=== PATIENT | male | born 1955 | race Two or more races ===

== ENCOUNTER → 2024-02-11 | Outpatient (CLI) | payer OTHER, SELFPAY ==
[2024-02-11 08:37] LABS: Basophils # (Auto) 0.1 Thou/mm3 (0.0-0.2); Basophils % (Auto) 1 % (0-2.5); Eosinophils # (Auto) 0.3 Thou/mm3 (0.0-0.5); Eosinophils % (Auto) 3 % (0-10); Hematocrit 40.4 % (41.0-53.0); Hemoglobin 13.4 g/dL (13.5-16.0); Immature Granulocytes % (Auto) 3 % (0-0); Immature Granulocytes Auto 0.37 Thou/mm3 (0.00-0.00); Lymphocytes # (Auto) 3.3 Thou/mm3 (1.0-4.8); Lymphocytes % (Auto) 29 % (10-50); Mean Corpuscular HGB Conc 33.2 g/dl (31.0-37.0); Mean Corpuscular Hemoglobin 31.4 pg (25.0-35.0); Mean Corpuscular Volume 95 fL (80-100); Monocytes # (Auto) 0.9 Thou/mm3 (0.0-0.8); Monocytes % (Auto) 8 % (0-12); Neutrophils # (Auto) 6.3 Thou/mm3 (1.8-7.7); Neutrophils % (Auto) 56 % (37-80); Nucleated Red Blood Cell % 0 /100 WBC (0); Platelet Count 250 Thou/mm3 (140-440); RDW Standard Deviation 59.3 fL (35.1-43.9); Red Blood Count 4.27 Miln/mm3 (4.50-5.90); White Blood Count 11.2 Thou/mm3 (3.8-10.6)
[2024-02-11 08:44] LABS: Glucose Estimated Average 117 mg/dL (80-131); Hemoglobin A1C 5.7 % Hgb (4.8-6.0)
[2024-02-11 09:01] LABS: Prostate Specific Antigen 1.85 ng/mL (0-4.00)
[2024-02-11 09:08] LABS: Alanine Aminotransferase 102 U/L (10-49); Albumin, Serum 4.4 gm/dL (3.4-4.8); Albumin/Globulin Ratio 2.6 (1.2-2.2); Alkaline Phosphatase 83 U/L (46-116); Anion Gap 6 (7-16); Aspartate Amino Transferase 37 U/L (0-34); BUN/Creatinine Ratio 23 Ratio (12-20); Bilirubin,Total 0.7 mg/dL (0.3-1.2); Blood Urea Nitrogen 28 mg/dL (9-23); Calcium 9.4 mg/dL (8.3-10.6); Calcium (Corrected) 9.4 mg/dL (8.5-10.1); Carbon Dioxide 27.3 mMol/L (20.0-31.0); Cardiac Risk Estimate 3.3 RATIO (4.0-6.7); Chloride 107 mMol/L (98-107); Cholesterol 216 mg/dL (132-200); Creatinine (Component) 1.2 mg/dL (0.6-1.3); Free T4 (Free Thyroxine) 1.24 ng/dL (0.89-1.76); Globulin 1.7 gm/dL (2.3-3.5); Glucose 81 mg/dL (74-106); HDL Cholesterol 66 mg/dL (40-60); LDL Cholesterol,Calculated 124 mg/dL (0-130); Osmolality,Calculated 283 (275-295); Potassium 4.1 mMol/L (3.4-5.1); Sodium 140 mMol/L (136-145); Thyroid Stimulating Hormone 3.62 uIU/mL (0.55-4.78); Total Protein 6.1 gm/dL (5.7-8.2); Triglycerides 129 mg/dL (30-150); eGFR > 60 See Note
== END | disposition home or self-care (01) ==
PROVIDERS: PCP Family Medicine; Referring Provider Nurse Practitioner Family; Visit Provider Nurse Practitioner Family
DX: I10 Essential (primary) hypertension (principal); E78.5 Hyperlipidemia, unspecified; N40.0 Benign prostatic hyperplasia without lower urinary tract symptoms; Z13.1 Encounter for screening for diabetes mellitus; Z13.29 Encounter for screening for other suspected endocrine disorder
CPT/HCPCS: 36415; 80053; 80061; 83036; 84153; 84439; 84443; 85025

== ENCOUNTER 2024-02-17 10:13 | Inpatient (IN) | payer OTHER, MEDICARE, SELFPAY ==
[2024-02-17] VITALS (9 sets, daily range): BP systolic 76–153; BP diastolic 42–89; PULSE 56–98; RESP 18–19; TEMP 36.1–36.9; O2SAT 94–98; BMI 28.6; BMI 31.0; BMI 31.5
--- NOTE | 2024-02-17 10:49 | EKG_ITS ---
[facility] Test Date: 2024-02-17 Pat Name: ROWENA ALONSO Department: Room: - Gender: Male Database Administration Associate: : 1955 Requested By: Lucero Michael ([facility]) [place] Order Number: [id number] Reading MD: Lucero Michael ([facility]) [place]to Measurements Intervals [place] Rate: 70 P: 9 [place]: 176 QRS: 69 QRSD: 109 T: 17 QT: 372 QTc: 402 Interpretive Statements SINUS RHYTHM POSSIBLE INFERIOR MYOCARDIAL INFARCTION , PROBABLY OLD [30 ms Q WAVE IN II/aVF] No previous ECG available for comparison /store/S0/[id number].pdf
--- NOTE | 2024-02-17 10:49 | XR_ITS ---
Examination: CT brain head without contrast. 2-D sagittal coronal reconstructions Date and time of exam:February 17, 2024 1320 hours Comparison November 30, 2021 INDICATIONS: Onset dizziness today CTDI: vol (mGy):54.9 DLP: (mGycm):1181 Technique: Multiple CT axial sections of the brain have been obtained, 5 mm slice thickness. Contrast has not been administered. 2-D sagittal, coronal reconstructions have been obtained Low dose protocols were performed. One or more of the following dose reduction techniques were used; automated exposure control, adjustment of the mA and/or KV according to patient size, use of iterative reconstruction technique. Findings: No significant ventricular enlargement. Intra-axial or extra-axial hemorrhage density is not seen. No mass effect or midline shift Basal cisterns are not remarkable. Fourth ventricle is midline. Cranial vault intact. Impression: Negative for acute hemorrhage, mass effect or midline shift Advise clinical correlation and follow-up accordingly
--- NOTE | 2024-02-17 10:50 | PD.EDRME ---
Rapid Medical Screening Exam RME Arrival date/time: 02/17/24 10:13 This is a 68-year-old male who presented to the emergency department with complaints of acute dizziness for 3 days. Upon assessment he is hypertensive. I have greeted and performed a focused initial assessment of this patient. Initial appropriate labs ordered at this time. A comprehensive ED assessment and evaluation of the patient and analysis of all test and completion of medical decision making process will be conducted by additional ED provider. Chief Complaint: Dizziness Time Seen by Provider: 02/17/24 10:36 Vital signs: Vital Signs Temperature 98.5 F 02/17/24 10:33 Pulse Rate 98 02/17/24 10:33 Respiratory Rate 19 02/17/24 10:33 Blood Pressure 76/42 L 02/17/24 10:33 Pulse Oximetry (%) 98 02/17/24 10:33 Oxygen Delivery Method Room Air 02/17/24 10:33 MD Attestation MD Attestation Patient was seen by the nurse practitioner not myself but I had to cosign it
--- NOTE | 2024-02-17 11:17 | PD.EDDIZZY ---
ED Dizzyness RME/HPI General Chief Complaint: Dizziness Stated Complaint: DIZZINESS X3DAYS Time Seen by Provider: 02/17/24 10:36 Arrival date/time: 02/17/24 10:13 RME / HPI RME / HPI Narrative: 68-year-old male with significant history of hypertension, hypercholesterolemia, was brought in by family for evaluation regarding dizziness. Patient's been having dizziness for the last 3 days, worse yesterday and today, patient called in for work yesterday. Patient was noted to be very hypertensive in the emergency room, blood pressure of 78/54. Upon evaluation patient denies any headache denies any abdominal pain denies any vomiting denies any fever denies any diarrhea. Patient also denies any blood in the stool or changes in the color of the stool. Patient nonalcoholic drinker. Related Data Home Medications ?Medication ?Instructions ?Recorded ?Confirmed gabapentin 300 mg capsule 30 mg PO TID 02/11/22 05/20/23 atorvastatin 20 mg tablet 20 mg PO QDAY 05/20/23 05/20/23 dicyclomine 20 mg tablet 20 mg PO TID 05/20/23 05/20/23 hydrochlorothiazide 12.5 mg tablet 12.5 mg PO QDAY 05/20/23 05/20/23 lisinopril 40 mg tablet 40 mg PO QDAY 05/20/23 05/20/23 tamsulosin 0.4 mg capsule 0.4 mg PO QHS 05/20/23 05/20/23 Previous Rx's ?Medication ?Instructions ?Recorded pantoprazole 40 mg tablet,delayed 40 mg PO BID #60 tabs 02/11/22 release (Protonix) Allergies Allergy/AdvReac Type Severity Reaction Status Date / Time tramadol Allergy Intermediate Rash Verified 02/17/24 10:16 Review of Systems Review of Systems Narrative Review of Systems: Review of system reviewed and within normal limits except mentioned in HPI ED Exam Narrative Physical exam: VITAL SIGNS: Reviewed. GENERAL APPEARANCE: Alert and interactive, follows commands, no acute distress, HEAD AND FACE: Non-traumatic. ENT: PERRL, pale conjunctiva, eyelid no trauma, Mucous membrane moist. NECK: Supple, nontender, no nuchal rigidity. CHEST: No tenderness, no crepitus, no paradoxical movement, no retractions. LUNGS: Clear, well ventilated, symmetric, no rales, no wheezing, no ronchi, no stridor, good breath sounds bilaterally. HEART: Regular rate, regular rhythm, no murmur, no gallops. ABDOMEN: Soft, positive bowel sounds, nondistended, no guarding, nontender, no rebound, no masses, RECTAL: Deferred. GENITAL: Deferred. NEUROLOGICAL: Gross motor function intact sensory function intact, Appropriate for age. MUSCULOSKELETAL: low back nontender, full range of motion. EXTREMITIES: Nontender, full range of motion. SKIN: Color pink, dry, no rash, no lacerations, no abrasions, no contusions. LYMPHATICS: Deferred. Course Quality Measures none Orders Category Date Time Status COVID-19 Screening Questionnaire NOW Care 02/17/24 14:[address] Screening NOW Care 02/17/24 11:20 Active Decision to Admit X1 Care 02/17/24 14:40 Completed EKG (ED ONLY) *Do not use* NOW Care 02/17/24 10:49 Completed Insert IV NOW Care 02/17/24 10:49 Active NPO STAT Care 02/17/24 10:49 Active Occult Blood,Stool (Nursing) NOW Care 02/17/24 10:[address] chest abdomen pelvis wo Stat Exams 02/17/24 13:[address] head/brain wo con Stat Exams 02/17/24 10:49 Completed EKG (ED Only) Stat Exams 02/17/24 10:49 Draft Blood Culture (Lab) Stat Lab 02/17/24 12:12 Received CBC Stat Lab 02/17/24 12:12 Completed Comprehensive Metabolic Panel Stat Lab 02/17/24 12:12 Completed Lactic Acid [Lactate (Lactic Acid)] Stat Lab 02/17/24 12:12 Completed Lipase Stat Lab 02/17/24 12:12 Completed Magnesium Stat Lab 02/17/24 12:12 Completed Procalcitonin Stat Lab 02/17/24 12:12 Completed Prothrombin Time with INR Stat Lab 02/17/24 12:12 Completed Troponin I Stat Lab 02/17/24 12:12 Completed Type and Screen Stat Lab 02/17/24 12:12 Completed Urinalysis Stat Lab 02/17/24 21:30 Received Sodium Chloride 0.9% 1000 ml [Ns] 1,000 ml Med 02/17/24 14:06 Discontinued IV 999 mls/hr Sodium Chloride 0.9% 1000 ml [Ns] 1,000 ml Med 02/17/24 14:24 Discontinued IV 999 mls/hr Vital Signs Vital signs: Vital Signs Temperature 98.5 F 02/17/24 10:33 Pulse Rate 98 02/17/24 10:33 Respiratory Rate 19 02/17/24 10:33 Blood Pressure 76/42 L 02/17/24 10:33 Pulse Oximetry (%) 98 02/17/24 10:33 Oxygen Delivery Method Room Air 02/17/24 10:33 Dizziness MDM Narrative MDM Narrative:: 68-year-old male with significant history of hypertension, hypercholesterolemia, was brought in by family for evaluation regarding dizziness. Patient's been having dizziness for the last 3 days, worse yesterday and today, patient called in for work yesterday. Patient was noted to be very hypertensive in the emergency room, blood pressure of 78/54. Upon evaluation patient denies any headache denies any abdominal pain denies any vomiting denies any fever denies any diarrhea. Patient also denies any blood in the stool or changes in the color of the stool. Patient nonalcoholic drinker. Patient was started on IV fluids right away Patient workup is significant for CELY, creatinine was noted to be 2.1, BUN of 36. The rest of the labs unremarkable. CT scan of the chest abdomen pelvis showed pulmonary nodule, otherwise unremarkable. Results discussed with the patient and family. CT scan of the head came back unremarkable. Plan of care discussed with the patient, regarding admission due to hypotension and CELY. Patient and family agrees to be admitted. Patient data External records reviewed:: None Clinical information provided by:: patient and family Social determinants that could affect healthcare access:: none Patient has the following chronic illnesses:: Hypertension hypercholesterolemia How is presenting disease/condition affected by chronic disease/condition?: exacerbated by Evaluation data The following diagnostics were reviewed and interpreted by me:: lab results, radiology exam(s) and EKG tracing(s) Lab and/or radiology exams considered but not ordered:: None Interpretation Summary: EKG's interpreted by me shows sinus rhythm, ventricular rate of 70 bpm, no ST segment elevation or depression noted. Medications / Prescriptions Medications or Prescriptions considered but not ordered:: None Medication administrations:: Medication Administration History Acetaminophen (Acetaminophen 325 Mg Tablet) 650 mg PO Q6H PRN PRN Reason: Fever >100.4 Stop: 03/18/24 15:11 Acetaminophen (Acetaminophen 325 Mg Tablet) 650 mg PO Q6H PRN PRN Reason: PAIN SCALE 1-3 (mild Stop: 03/18/24 15:11 Hydrocodone Bitart/Acetaminophen (Hydrocodone/Apap 10/325 Tab) 1 tab PO Q4HR PRN PRN Reason: PAIN SCALE 7-10 (Severe Stop: 02/22/24 15:11 Heparin Sodium (Porcine) (Heparin Sod Inj 5000 Unit/Ml Vial) 5,000 unit SC Q8HR [facility] Stop: 03/02/24 21:59 Sodium Chloride (Ns) 1,000 mls @ 75 mls/hr IV .[id number] [facility] Stop: 03/18/24 15:14 Last Infusion: 02/17/24 19:57 Dose: Infused Documented By: Admin: 02/17/24 15:50 Dose: 75 mls/hr Documented By: RANDY Ondansetron HCl (Ondansetron Inj 2 Mg/Ml Inj 2 Ml) 4 mg IV Q6H PRN; Protocol PRN Reason: NAUSEA OR VOMITING Stop: 03/18/24 15:11 Oxycodone/Acetaminophen (Oxycodone/Apap 5/325 Tablet) 1 tab PO Q6H PRN PRN Reason: PAIN SCALE 4-6 (Moderate Stop: 02/22/24 15:11 Sennosides (Senna Tablet) 1 tab PO BID PRN; Protocol PRN Reason: CONSTIPATION Stop: 03/18/24 15:11 Discontinued Medications Sodium Chloride (Ns) 1,000 mls @ 999 mls/hr IV .Q1H1M ONE Stop: 02/17/24 15:06 Last Infusion: 02/17/24 15:36 Dose: Infused Documented By: Admin: 02/17/24 14:29 Dose: 999 mls/hr Documented By: RANDY Sodium Chloride (Ns) 1,000 mls @ 999 mls/hr IV .Q1H1M ONE Stop: 02/17/24 15:24 Last Infusion: 02/17/24 15:36 Dose: Infused Documented By: Admin: 02/17/24 14:29 Dose: 999 mls/hr Documented By: RANDY IV fluids for hydration Consultations Consultation(s) initiated? (list below): No Consultation #1 (Physician, Specialty, Details): None Diagnosis Dizziness Differential Diagnosis: other (Hyportension, dehydration,) Most likely diagnosis given after review of the tests above:: CELY, hypotension dehydration Admission Indicated Admission indicated?: indicated Explain why admission is indicated or not indicated:: Patient is to be admitted for further management Admission Request Was there a request for admission?: Yes Admission Attestation Admission request attestation: Discussed case with [Dr Fox ] from Hospitalist service regarding admission. Discussed patients ED course, exam findings, labs, and radiology results. The Hospitalist [agrees, to accept the patient for admission. Disposition Plan Disposition Plan: Admit Discharge Plan Plan Patient Disposition: Admit Acute Care w/in Hospital Disposition Comment: Stable Problem List Clinical Impression: CELY (acute kidney injury), Acute hypotension
[2024-02-17 12:18] LABS: Lactate (Lactic Acid) 1.5 mMol/L (0.4-2.0)
[2024-02-17 12:19] LABS: Basophils # (Auto) 0.1 Thou/mm3 (0.0-0.2); Basophils % (Auto) 1 % (0-2.5); Eosinophils # (Auto) 0.2 Thou/mm3 (0.0-0.5); Eosinophils % (Auto) 2 % (0-10); Hematocrit 37.4 % (41.0-53.0); Hemoglobin 12.6 g/dL (13.5-16.0); Immature Granulocytes % (Auto) 2 % (0-0); Immature Granulocytes Auto 0.18 Thou/mm3 (0.00-0.00); Lymphocytes # (Auto) 2.7 Thou/mm3 (1.0-4.8); Lymphocytes % (Auto) 27 % (10-50); Mean Corpuscular HGB Conc 33.7 g/dl (31.0-37.0); Mean Corpuscular Hemoglobin 31.7 pg (25.0-35.0); Mean Corpuscular Volume 94 fL (80-100); Monocytes % (Auto) 10 % (0-12); Neutrophils # (Auto) 5.8 Thou/mm3 (1.8-7.7); Neutrophils % (Auto) 59 % (37-80); Nucleated Red Blood Cell % 0 /100 WBC (0); Platelet Count 219 Thou/mm3 (140-440); RDW Standard Deviation 59.9 fL (35.1-43.9); Red Blood Count 3.97 Miln/mm3 (4.50-5.90); White Blood Count 9.9 Thou/mm3 (3.8-10.6)
[2024-02-17 12:35] LABS: INR 1.1 (0.9-1.3); Prothrombin Time 11.5 Seconds (9.0-12.2)
[2024-02-17 13:15] LABS: Alanine Aminotransferase 118 U/L (10-49); Albumin, Serum 3.7 gm/dL (3.4-4.8); Albumin/Globulin Ratio 1.7 (1.2-2.2); Alkaline Phosphatase 67 U/L (46-116); Anion Gap 10 (7-16); Aspartate Amino Transferase 40 U/L (0-34); BUN/Creatinine Ratio 17 Ratio (12-20); Bilirubin,Total 1.1 mg/dL (0.3-1.2); Blood Urea Nitrogen 36 mg/dL (9-23); Calcium 9.2 mg/dL (8.3-10.6); Calcium (Corrected) 9.4 mg/dL (8.5-10.1); Carbon Dioxide 22.9 mMol/L (20.0-31.0); Chloride 107 mMol/L (98-107); Creatinine (Component) 2.1 mg/dL (0.6-1.3); Estimated Creatinine Clearance 43.3 mL/min (>60); Globulin 2.2 gm/dL (2.3-3.5); Glucose 99 mg/dL (74-106); Lipase 33 U/L (12-53); Osmolality,Calculated 287 (275-295); Potassium 3.7 mMol/L (3.4-5.1); Sodium 140 mMol/L (136-145); Total Protein 5.9 gm/dL (5.7-8.2); Troponin I < 0.020 ng/mL (0.0-0.045); eGFR 34 See Note
--- NOTE | 2024-02-17 13:21 | XR_ITS ---
Examination: CT chest, without intravenous contrast. CT abdomen, without intravenous contrast. CT pelvis, without intravenous contrast. 2-D sagittal and coronal reconstructions. 3-D reconstructions. Date and time of exam:February 17, 2024 1328 hours INDICATIONS: Chest pain abdominal pain with urination bilateral flank pain today CTDI vol (mgy) 9.53 DLP (MGycm)767 Technique: Multiple CT images, 3.0 mm slice thickness, obtained chest, abdomen, pelvis, with the high-resolution 64 slice scanner.. Sagittal and coronal 2-D reconstructions are obtained. 3-D reconstructions Low dose protocols were performed. One or more of the following dose reduction techniques were used; automated exposure control, adjustment of the mA and/or KV according to patient size, use of iterative reconstruction technique. Findings: No thoracic aortic aneurysm dilatation Pulmonary artery segments are not enlarged No paratracheal tracheobronchial or bronchopulmonary adenopathy 9 mm noncalcified pulmonary nodule left upper lobe No pneumonia or pulmonary edema Diffuse fatty infiltration throughout the liver Hyperdense gallbladder Spleen not enlarged Retrocardiac gastric hernia No pancreatic mass Moderate bilateral renal parenchymal scar formation No renal or ureteral calculi, no hydronephrosis Aorta normal size Normal appendix 25 mm fat-containing umbilical hernia Colonic diverticulosis, no diverticulitis Contracted urinary bladder Transverse prostate dimension 4.6 cm IMPRESSION: 9 mm noncalcified pulmonary nodule left upper lobe, differential would include lung cancer, pulmonary nodular metastatic disease, recommend continued 6 month follow-up CT chest without contrast Moderate bilateral renal parenchymal scar formation No renal or ureteral calculi, no hydronephrosis Normal appendix Colonic diverticulosis, no diverticulitis Moderate prostatomegaly
[2024-02-17 13:36] LABS: Procalcitonin 0.16 ng/ml (0.0-0.49)
[2024-02-17] MEDS: SODIUM CHLORIDE 0.9% 1000 ML 1,000 ML 999 ML IV ×2 (14:29)
--- NOTE | 2024-02-17 15:12 | PD.RESHP ---
Documentation for date of: 02/17/24 [facility] History of Present Illness History of present illness: This is a 68-year-old male MHx of hypertension, presenting to ED with 3 days of dizziness. Patient reports acute onset of dizziness, without known trigger, that has not improved but has been consistent over the last 3 days. Dizziness worse when getting up from seated position. He feels lightheaded with ambulation. Patient also reported increased urination recently, but not extensively urinating, inconsistent with polyuria. All the symptoms are new. She admits to poor water intake, likely chronic, states he does not enjoy the taste of water. Denies fever, headaches, recent fall, head trauma, focal neurological deficits, visual changes, confusion, recent travel, chest pain, shortness of breath, cough, abdominal pain or GI bleed, N/V/D/C, weight gain or low weight loss, dysuria or hematuria. Patient works maintenance at the [employer]. Denies being outside the sun for prolonged period. Additionally: ED COURSE: Afebrile, BP 76/42, pulse 98, satting 98% on 2 L Creatinine 2.1, GFR 34, AST 40, ALT 118, remainder CMP benign. BC hemoglobin 12.6 otherwise benign. EKG sinus rhythm, troponin negative. CT head negative for acute pathology. CT CAP showed moderate bilateral renal parenchymal scarring, colonic diverticulosis without diverticulitis, moderate prostatomegaly pulmonary nodules of the left upper lobe 9 mm noncalcified. Patient admitted to hospitalist team for CELY and hypotension in settings of dehydration. PMHx: HTN PSHx: None MEDS: Pending med rec ALLERGIES: TRAMADOL (rash) SH: Denies smoking, alcohol or drug use Exam Vital Signs Temp Pulse Resp BP Pulse Ox O2 Del Method 98.5 F 56 L 18 101/65 94 L Room Air 02/17/24 10:33 02/17/24 11:29 02/17/24 11:29 02/17/24 11:49 02/17/24 11:29 02/17/24 11:29 Narrative Exam GENERAL: Normal appearing obese male, NAD HEENT: NCAT.?DELIA. Oral mucosa is moist. Patent Nares NECK: Supple, nontender, no thyromegaly, no meningismus, no JVD, no step offs CHEST: Symmetrical, atraumatic, and with equal expansion, Nontender on palpation no deformity and no crepitus. CARDIOVASCULAR: RRR, no m/g/r LUNGS: CTAB, no w/r/r. Symmetrical chest rise. No intercostal subcostal retraction. ABDOMEN: Soft, flat, nontender. No guarding/rebound tenderness/masses. +BS EXTREMITIES: Nontender.? No edema/cyanosis.?Moves all 4 extremities well, with full ROM and good CSM. SKIN: Warm and dry, no jaundice/rashes. MSK: No lumbar or midline, no CVA, no paraspinal muscle spasm or tenderness. NEURO: SAGASTUME x4, CN II-XII grossly intact.?No focal neurologic deficits. PSYCHIATRIC: Normal mood and affect, cooperative, no SI or HI or hallucinations. Results: Labs 02/18/24 05:08 02/18/24 05:08 Labs: Short CBC 02/17/24 Range/Units 12:12 WBC 9.9 (3.8-10.6) Thou/mm3 Hgb 12.6 L (13.5-16.0) g/dL Hct 37.4 L (41.0-53.0) % Plt Count 219 D (140-440) Thou/mm3 BMP 02/17/24 12:12 Sodium 140 Potassium 3.7 Chloride 107 Carbon Dioxide 22.9 BUN 36 H Creatinine 2.1 H D Glucose 99 Calcium 9.2 Cardiac Enzymes 02/17/24 Range/Units 12:12 Troponin I < 0.020 (0.0-0.045) ng/mL Liver Function 02/17/24 Range/Units 12:12 Total Bilirubin 1.1 (0.3-1.2) mg/dL AST 40 H (0-34) U/L ALT 118 H (10-49) U/L Alkaline Phosphatase 67 (46-116) U/L Albumin 3.7 (3.4-4.8) gm/dL Quality Measures Quality Measures VTE prophylaxis Advance care planning discussed with:: patient Medications Home Medications and Allergies Home Medications ?Medication ?Instructions ?Recorded ?Confirmed ?Type gabapentin 300 mg capsule 30 mg PO TID 02/11/22 05/20/23 History atorvastatin 20 mg tablet 20 mg PO QDAY 05/20/23 05/20/23 History dicyclomine 20 mg tablet 20 mg PO TID 05/20/23 05/20/23 History hydrochlorothiazide 12.5 mg tablet 12.5 mg PO QDAY 05/20/23 05/20/23 History lisinopril 40 mg tablet 40 mg PO QDAY 05/20/23 05/20/23 History tamsulosin 0.4 mg capsule 0.4 mg PO QHS 05/20/23 05/20/23 History Allergies Allergy/AdvReac Type Severity Reaction Status Date / Time tramadol Allergy Intermediate Rash Verified 02/17/24 10:16 Visit Medications Sodium Chloride (Ns) 1,000 mls @ 999 mls/hr IV .Q1H1M ONE Stop: 02/17/24 15:24 Last Admin: 02/17/24 14:29 Dose: 999 mls/hr Discontinued Medications Sodium Chloride (Ns) 1,000 mls @ 999 mls/hr IV .Q1H1M ONE Stop: 02/17/24 15:06 Last Admin: 02/17/24 14:29 Dose: 999 mls/hr Assessment & Plan Plan In summary: 68-year-old male with PMHx of HTN, presenting with 3 days of dizziness and lightheadedness, admitted for CELY and hypotension likely in settings of dehydration. Patient started on IV fluids. Prerenal CELY Acute hypotension Acute dehydration Mild acute transaminitis Presented with 3 days of dizziness and lightheadedness, history of chronic poor water intake. Although complains of increased urination, frequency as described by patient inconsistent with polyuria. CT head negative for acute pathology. No history of head trauma or fall. Likely symptoms related to chronic dehydration. Creatinine 2.1, GFR 34, AST 40, ALT 118. Dissipate kidney function and transaminitis will improve with rehydration ? S/p 2 L NS bolus in ED ? Continue normal saline at 75 cc an hour ? Renally dose meds, avoid overdiuresis and NEPHROTOXINS ? Follow-up with PCP for further evaluation History of hypertension Controlled with home meds, med rec pending, currently hypotensive in settings of dehydration. ? Resume home ANTIHYPERTENSIVES as indicated Incidental findings CT CAP showed moderate bilateral renal parenchymal scarring, colonic diverticulosis without diverticulitis, moderate prostatomegaly pulmonary nodules of the left upper lobe 9 mm noncalcified. No history of smoking. No respiratory symptoms such/cough, hemoptysis, or shortness of breath. No signs of urinary retention. ? Follow-up outpatient with PCP ? Recommended repeat CT scan in 6 months Health maintenance Diet: Renal Diet GI prophylaxis: Not indicated DVT prophylaxis: HEPARIN subcu Antibiotics: Not indicated CODE STATUS: Full code Disposition: Pending CELY resolution Patient case was discussed with attending, Chito Fox MD and senior residents Dr. Hobson and Dr. Jeffries. Karina Davis DO PGYI Attending Provider Attestation/Addendum I reviewed labs, imaging, EKG, home medications and prior available records. Face to face evaluation was performed by me. I have personally examined the patient and discussed assessment and plan with the IM team. I reviewed the resident note and agree with the plan with exceptions as below. Dizziness Acute hypotension CELY Dehydration History of essential hypertension Transaminitis Continue IV hydration Monitor BP Monitor kidney function. Avoid nephrotoxins. Renally dosed medications. Hold antihypertensive treatment PT evaluation Trend LFTs
[2024-02-17] MEDS: SODIUM CHLORIDE 0.9% 1000 ML 1,000 ML 75 ML IV (15:50)
--- NOTE | 2024-02-17 16:01 | PC.CC ---
Patient is a 68 year-old male who presents to the hospital for dizziness x3 days. Hawa CLARK made [id number] contact with patient. ASW introduced self, role, and reason for visit. Patient appeared alert and oriented to self, location, and situation. Patient was pleasant and engaged in initial assessment. Patient confirmed information on demographics and reports to living with his significant other, Tami Richard . Patient is employed at [employer]. Patient is able to complete his own ADLs and is independent with ambulation. Patient does not use any DME. Patient receives primary care with Savannah Loaiza and uses [facility] for prescription medication. Upon discharge patient plans to return back home with his significant other. technical services analyst to follow up with any discharge needs.
[2024-02-17 21:42] LABS: Collection Type, Urine Clean Catch; Squamous Epithelial Cell,Urine 0 /hpf (0-5)
[2024-02-17 22:21] LABS: Bilirubin,Urine Negative (Negative); Blood,Urine Negative (Negative); Clarity,Urine Clear (Clear/Hazy); Color,Urine Lt-Yellow (Lt Yel-Yel); Glucose, Urine Negative (Negative); Ketones,Urine Negative (Negative); Leukocyte Esterase,Urine Negative (Negative); Nitrite,Urine Negative (Negative); Protein,Urine Negative (Neg - Trace); RBC,Urine 1 /hpf (0-3); Specific Gravity,Urine 1.013 (1.001-1.035); WBC,Urine < 1 /hpf (0-5)
[2024-02-18] VITALS: BP 128/77; PULSE 63; RESP 16; TEMP 36.2; O2SAT 97
[2024-02-18 00:04] VITALS: PULSE 61; RESP 16; RESP 93
[2024-02-18 04:00] VITALS: BP 121/78; PULSE 75; RESP 18; TEMP 35.9; O2SAT 95
[2024-02-18] MEDS: SENNA TABLET 1 TAB PO (05:10)
[2024-02-18] MEDS: HEPARIN SOD INJ 5000 UNIT/ML VIAL SC ×2 (05:10→14:50)
[2024-02-18] MEDS: ACETAMINOPHEN 325 MG TABLET 650 MG PO (05:19)
[2024-02-18 06:12] LABS: Basophils # (Auto) 0.1 Thou/mm3 (0.0-0.2); Basophils % (Auto) 1 % (0-2.5); Eosinophils # (Auto) 0.3 Thou/mm3 (0.0-0.5); Eosinophils % (Auto) 4 % (0-10); Hematocrit 38.7 % (41.0-53.0); Hemoglobin 13.3 g/dL (13.5-16.0); Immature Granulocytes % (Auto) 2 % (0-0); Immature Granulocytes Auto 0.13 Thou/mm3 (0.00-0.00); Lymphocytes # (Auto) 2.6 Thou/mm3 (1.0-4.8); Lymphocytes % (Auto) 31 % (10-50); Mean Corpuscular HGB Conc 34.4 g/dl (31.0-37.0); Mean Corpuscular Hemoglobin 31.9 pg (25.0-35.0); Mean Corpuscular Volume 93 fL (80-100); Monocytes # (Auto) 0.9 Thou/mm3 (0.0-0.8); Monocytes % (Auto) 11 % (0-12); Neutrophils # (Auto) 4.5 Thou/mm3 (1.8-7.7); Neutrophils % (Auto) 53 % (37-80); Nucleated Red Blood Cell % 0 /100 WBC (0); Platelet Count 258 Thou/mm3 (140-440); RDW Standard Deviation 59.8 fL (35.1-43.9); Red Blood Count 4.17 Miln/mm3 (4.50-5.90); White Blood Count 8.5 Thou/mm3 (3.8-10.6)
[2024-02-18] MEDS: SODIUM CHLORIDE 0.9% 1000 ML 1,000 ML 75 ML IV (06:24)
[2024-02-18 06:50] LABS: Alanine Aminotransferase 122 U/L (10-49); Albumin, Serum 4.1 gm/dL (3.4-4.8); Alkaline Phosphatase 74 U/L (46-116); Anion Gap 9 (7-16); Aspartate Amino Transferase 44 U/L (0-34); BUN/Creatinine Ratio 22 Ratio (12-20); Bilirubin,Total 1.2 mg/dL (0.3-1.2); Blood Urea Nitrogen 31 mg/dL (9-23); Carbon Dioxide 23.4 mMol/L (20.0-31.0); Chloride 107 mMol/L (98-107); Creatinine (Component) 1.4 mg/dL (0.6-1.3); Estimated Creatinine Clearance 58.8 mL/min (>60); Globulin 2.1 gm/dL (2.3-3.5); Glucose 80 mg/dL (74-106); Magnesium 1.9 mg/dL (1.6-2.6); Osmolality,Calculated 283 (275-295); Phosphorous 3.1 mg/dL (2.4-5.1); Potassium 3.9 mMol/L (3.4-5.1); Sodium 139 mMol/L (136-145); Total Protein 6.2 gm/dL (5.7-8.2); eGFR 55 See Note
[2024-02-18 08:00] VITALS: BP 145/59; PULSE 68; PULSE 74; RESP 17; TEMP 36.7; O2SAT 97
[2024-02-18] MEDS: PANTOPRAZOLE 40 MG TABLET PO (11:01)
--- NOTE | 2024-02-18 11:04 | ESDS_ITS ---
Planned Discharge Date 02/18/24 DS: Providers Provider Date of admission: 02/17/24 15:12 Primary care physician: Savannah Loaiza NP Admitting Provider: Chito Fox MD Attending Provider on Admission: Chito Fox MD Consults: 02/18/24 09:02 Referral Physical Therapy Stat Comment: Physician Instructions: Attending Provider on DC: Gary Hobson MD Discharging Provider: Gary Hobson MD DS: Diagnosis Problem List Completed Was Problem List Reviewed/Reconciled?: Yes Hospital Course Hospital Course Hospital course: Patient was a 68-year-old male with HTN who presented to the ED with 3 days of dizziness, and was also noted to have acute hypotension. Patient endorses being sick for several days, with poor oral intake and had been taking his home antihypertensives, including hydrochlorothiazide. Labs were significant for CELY with creatinine 2.1 (was 1.2 on 02/11/2024), transaminitis. Patient was started on IV fluids with improvement of renal function and blood pressure. He denied any dizziness and was noted to be ambulating with RN. His home meds were reconciled and Protonix was resumed for gastritis. Lisinopril, gabapentin were held due to CELY. CT C/A/P revealed incidental finding of 9 mm pulmonary nodule in left upper lobe, which was relayed to patient. He was informed to follow-up with chest CT in 6 months. On 02/17, patient was deemed stable for discharge. Discussed discharge plan with patient and his partner at bedside. Instructed patient to drink more water, continue to monitor his blood pressure and discontinued hydrochlorothiazide at this time. Return precautions provided. Patient and partner understood. #Prerenal CELY, improved #Acute hypotension, improved #Acute transaminitis, improved #Acute dehydration, improved #Hypertension #Gastritis #Incidental findings: Left upper lobe pulmonary nodule => recommend CT in 6 months Patient seen and care discussed with my attending Dr. Fox. Gary Hobson MD PGY-3 Status at Discharge Cognitive/behavioral status at discharge: AAOx3 Time Spent with Patient Time attestation: Total time spent providing and/or coordinating discharge services: Time spent: Greater than 30 minutes Exam Vital Signs Temp Pulse Resp BP Pulse Ox O2 Del Method O2 Flow Rate 98.1 F 74 17 145/59 H 97 Room Air 2 02/18/24 08:00 02/18/24 08:00 12/20/24 08:00 02/18/24 08:00 02/18/24 08:00 02/18/24 04:00 02/17/24 19:51 Narrative Exam GENERAL: Normal appearing obese male, resting comfortably HEENT: NCAT.?DELIA. Oral mucosa is moist. Patent Nares NECK: Supple, nontender, no thyromegaly, no meningismus, no JVD, no step offs CHEST: Symmetrical, atraumatic, and with equal expansion, Nontender on palpation no deformity and no crepitus. CARDIOVASCULAR: RRR, no m/g/r LUNGS: CTAB, no w/r/r. Symmetrical chest rise. No intercostal subcostal retraction. ABDOMEN: Soft, obese, nontender. No guarding/rebound tenderness/masses. +BS EXTREMITIES: Nontender.? No edema/cyanosis.?Moves all 4 extremities well, with full ROM and good CSM. SKIN: Warm and dry, no jaundice/rashes. MSK: No lumbar or midline, no CVA, no paraspinal muscle spasm or tenderness. NEURO: SAGASTUME x4, CN II-XII grossly intact.?No focal neurologic deficits. PSYCHIATRIC: Normal mood and affect, cooperative, no SI or HI or hallucinations. Discharge Plan Plan Patient Disposition: HOME (Self Care) Patient condition on transfer: Stable Care Plan Goals: Please follow up with your PCP within 1-2 weeks after discharge Your hydrochlorothiazide was discontinued as this likely contributed to your dehydration and acute kidney injury. If you notice your legs swelling, discuss with your PCP on resuming HCTZ. Your other hypertensive medications were continued. Please continue to monitor your blood pressure, and if it is low (SBP <100), or you are feeling lightheaded/dizzy, hold your antihypertensive medications. Avoid dehydration. This will help prevent hypotension and kidney injury. As we discussed, there was an incidental finding 9mm left upper lung nodule. Recommend to follow up with a chest CT without contrast in 6 months for further evaluation. Agata un JUAN PABLO con colunga PCP dentro de 1 a 2 semanas despu?s del jose d. Se suspendi? colunga hidroclorotiazida porque probablemente contribuy? a colunga deshidrataci?n y lesi?n renal aguda. Si nota que se le hinchan las piernas, hable con colunga PCP sobre la posibilidad de reanudar HCTZ. Se continuaron con keyon otros medicamentos para la hipertensi?n. Contin?e controlando colunga presi?n arterial y, si es baja (PAS <100), o se siente aturdido o mareado, suspenda keyon medicamentos antihipertensivos. Evite la deshidrataci?n. [place] ayudar? a prevenir la hipotensi?n y la lesi?n renal. Darby comentamos, hubo un hallazgo incidental de un n?dulo pulmonar superior abdelrahman de 9 mm. Se recomienda seguimiento con TC de t?rax sin contraste a los 6 meses para evaluaci?n adicional. Prescriptions/Referrals Prescriptions/Med Rec: Continued atorvastatin 20 mg tablet 20 mg PO QDAY tamsulosin 0.4 mg capsule 0.4 mg PO QHS lisinopril 40 mg tablet 40 mg PO QDAY dicyclomine 20 mg tablet 20 mg PO TID gabapentin 300 mg capsule 30 mg PO TID Patient Comments: take 1 capsule by mouth twice a day for 1 week then take 1 capsule three times a day pantoprazole [Protonix] 40 mg Tablet,Delayed Release (Dr/Ec) 40 mg PO BID Qty: 60 2RF Discontinued hydrochlorothiazide 12.5 mg tablet 12.5 mg PO QDAY Referrals: Savannah Loaiza NP [Primary Care Provider] - Patient/Caregiver Discharge Instructions Discharge Activity: activity as tolerated Education Materials: Acute Kidney Failure Dc, Hypotension Dc Print Language: [place] Stand Alone Forms: [facility] Info., Patient Portal Info Letter Discharge Order Discharge Orders: Discharge (Routine); Ordered 02/18/24 Ordered By: Gary Hobson Quality Discharge Quality Measures VTE prophylaxis Attestestation MD Attestation I reviewed labs, imaging, EKG, home medications and prior available records. Face to face evaluation was performed by me. I have personally examined the talita ent and discussed assessment and plan with the IM team. I reviewed the resident note and agree with the plan with exceptions as below. Dizziness Acute hypotension CELY Dehydration History of essential hypertension Transaminitis Encourage hydration Hypotension resolved Repeat BMP in 1 week Stop hydrochlorothiazide. Continue the rest of the BP medications Time spent is 40 minutes. More than 50% of the time was spent on patient education and coordination of care.
[2024-02-18 12:00] VITALS: BP 121/66; PULSE 76; PULSE 80; RESP 16; TEMP 36.6; O2SAT 99
--- NOTE | 2024-02-18 12:07 | PC.NURSE ---
Walked patient around the unit, patient denied any dizziness or weakness. tolerated ambulation well.
[2024-02-18 15:31] VITALS: PULSE 78; RESP 16; RESP 98
== END 2024-02-18 16:09 | disposition home or self-care (01) | DRG 684 ==
LOC: SERX 13:05 → SERHOLD 15:37 → S3SX 21:49
PROVIDERS: Nurse Practitioner Primary Care; Admitting Provider Student in an Organized Health Care Education/Training Program; Emergency Provider Emergency Medicine; PCP Nurse Practitioner Family; Visit Provider Student in an Organized Health Care Education/Training Program
DX: N17.9 Acute kidney failure, unspecified (principal); I95.9 Hypotension, unspecified; E86.0 Dehydration; I10 Essential (primary) hypertension; R74.01 Elevation of levels of liver transaminase levels; K57.30 Diverticulosis of large intestine without perforation or abscess without bleeding; E78.00 Pure hypercholesterolemia, unspecified; K29.70 Gastritis, unspecified, without bleeding; R91.1 Solitary pulmonary nodule; T50.2X5A Adverse effect of carbonic-anhydrase inhibitors, benzothiadiazides and other diuretics, initial encounter; Z79.899 Other long term (current) drug therapy
CPT/HCPCS: 36415; 70450; 71250; 74176; 80053; 81001; 83605; 83690; 83735; 84100; 84145; 84484; 85025; 85610; 86850; 86900; 86901; 87040; 93005; 93225; 96360; 96361; 99285; J1643; J7030; A9270; J1644

== ENCOUNTER → 2024-03-03 | Outpatient (CLI) | payer OTHER, SELFPAY ==
[2024-03-03 17:33] LABS: Basophils # (Auto) 0.1 Thou/mm3 (0.0-0.2); Basophils % (Auto) 1 % (0-2.5); Eosinophils # (Auto) 0.1 Thou/mm3 (0.0-0.5); Eosinophils % (Auto) 1 % (0-10); Hematocrit 37.2 % (41.0-53.0); Hemoglobin 12.8 g/dL (13.5-16.0); Immature Granulocytes % (Auto) 3 % (0-0); Lymphocytes % (Auto) 32 % (10-50); Mean Corpuscular HGB Conc 34.4 g/dl (31.0-37.0); Mean Corpuscular Hemoglobin 32.7 pg (25.0-35.0); Mean Corpuscular Volume 95 fL (80-100); Monocytes # (Auto) 1.1 Thou/mm3 (0.0-0.8); Monocytes % (Auto) 12 % (0-12); Neutrophils # (Auto) 4.8 Thou/mm3 (1.8-7.7); Neutrophils % (Auto) 52 % (37-80); Nucleated Red Blood Cell % 0 /100 WBC (0); Platelet Count 318 Thou/mm3 (140-440); RDW Standard Deviation 61.2 fL (35.1-43.9); Red Blood Count 3.92 Miln/mm3 (4.50-5.90); White Blood Count 9.4 Thou/mm3 (3.8-10.6)
[2024-03-03 17:52] LABS: Alanine Aminotransferase 131 U/L (10-49); Albumin, Serum 4.4 gm/dL (3.4-4.8); Albumin/Globulin Ratio 2.3 (1.2-2.2); Alkaline Phosphatase 81 U/L (46-116); Anion Gap 10 (7-16); Aspartate Amino Transferase 44 U/L (0-34); BUN/Creatinine Ratio 21 Ratio (12-20); Bilirubin,Total 0.5 mg/dL (0.3-1.2); Blood Urea Nitrogen 25 mg/dL (9-23); Calcium 9.2 mg/dL (8.3-10.6); Calcium (Corrected) 9.2 mg/dL (8.5-10.1); Carbon Dioxide 26.2 mMol/L (20.0-31.0); Chloride 106 mMol/L (98-107); Creatinine (Component) 1.2 mg/dL (0.6-1.3); Globulin 1.9 gm/dL (2.3-3.5); Glucose 87 mg/dL (74-106); Osmolality,Calculated 286 (275-295); Sodium 142 mMol/L (136-145); Total Protein 6.3 gm/dL (5.7-8.2); eGFR > 60 See Note
== END | disposition home or self-care (01) ==
LOC: COPL 16:10
PROVIDERS: PCP Nurse Practitioner Family; Referring Provider Hospitalist; Visit Provider Hospitalist
DX: N17.9 Acute kidney failure, unspecified (principal)
CPT/HCPCS: 36415; 80053; 85025

== ENCOUNTER → 2024-03-30 | Outpatient (CLI) | payer OTHER, SELFPAY ==
--- NOTE | 2024-03-30 08:45 | XR_ITS ---
Examination: Abdomen sonogram, Limited Date and time of exam: March 30, 2024 0836 hours INDICATIONS: Elevated liver function tests on laboratory examination performed one week ago Technique: Real-time wolfe scale transabdominal sonographic images of the upper abdomen obtained. Findings: Normal gallbladder Normal common bile duct 0.5 cm Pancreatic head 3.6 cm Liver 15.6 cm fatty infiltration Normal hepatopedal portal venous flow Patent IVC IMPRESSION: Normal gallbladder Recommend CT scan abdomen pancreas follow-up post intravenous contrast to exclude pancreatic mass
== END | disposition home or self-care (01) ==
PROVIDERS: PCP Nurse Practitioner Family; Referring Provider Nurse Practitioner Family; Visit Provider Nurse Practitioner Family
DX: R74.01 Elevation of levels of liver transaminase levels (principal)
CPT/HCPCS: 76705

== ENCOUNTER → 2024-03-31 | Outpatient (CLI) | payer OTHER, SELFPAY ==
--- NOTE | 2024-03-31 09:14 | XR_ITS ---
Examination: PA lateral chest 2 views TECHNIQUE: Upright PA lateral chest 2 views Exam date and time: March 31, 2024 0940 hours INDICATIONS: Preop FINDINGS: Minor prominence left ventricle Ectatic thoracic aorta. No pneumonia or pulmonary edema 9 mm pulmonary nodule left upper lobe, please see the CT chest report February 17, 2024 IMPRESSION: No active disease
[2024-03-31 10:21] LABS: Basophils % (Auto) 1 % (0-2.5); Eosinophils # (Auto) 0.5 Thou/mm3 (0.0-0.5); Eosinophils % (Auto) 8 % (0-10); Hematocrit 39.3 % (41.0-53.0); Hemoglobin 13.3 g/dL (13.5-16.0); Immature Granulocytes % (Auto) 1 % (0-0); Immature Granulocytes Auto 0.05 Thou/mm3 (0.00-0.00); Lymphocytes # (Auto) 1.9 Thou/mm3 (1.0-4.8); Lymphocytes % (Auto) 32 % (10-50); Mean Corpuscular HGB Conc 33.8 g/dl (31.0-37.0); Mean Corpuscular Hemoglobin 33.1 pg (25.0-35.0); Mean Corpuscular Volume 98 fL (80-100); Monocytes # (Auto) 0.7 Thou/mm3 (0.0-0.8); Monocytes % (Auto) 12 % (0-12); Neutrophils # (Auto) 2.7 Thou/mm3 (1.8-7.7); Neutrophils % (Auto) 46 % (37-80); Nucleated Red Blood Cell % 0 /100 WBC (0); Platelet Count 235 Thou/mm3 (140-440); RDW Standard Deviation 56.8 fL (35.1-43.9); Red Blood Count 4.02 Miln/mm3 (4.50-5.90); White Blood Count 5.9 Thou/mm3 (3.8-10.6)
--- NOTE | 2024-03-31 10:31 | EKG_ITS ---
[facility] Test Date: 2024-03-31 Pat Name: ROWENA ALONSO Department: Room: - Gender: Male [employer]: [place] : 1955 Requested By: Savannah Loaiza Order Number: [id number] Reading MD: Savannah Loaiza Measurements Intervals [place] Rate: 72 P: 30 IN: 181 QRS: 30 QRSD: 108 T: 30 QT: 370 QTc: 406 Interpretive Statements SINUS RHYTHM LOW QRS VOLTAGE IN PRECORDIAL LEADS Compared to ECG 02/17/2024 10:48:51 Low QRS voltage now present Myocardial infarct finding no longer present /store/S0/[id number]/ecg/[id number].pdf
[2024-03-31 10:32] LABS: Partial Thromboplastin Time 27.2 Seconds (22.0-36.0); Prothrombin Time 10.8 Seconds (9.0-12.2)
[2024-03-31 10:37] LABS: Alanine Aminotransferase 99 U/L (10-49); Albumin, Serum 4.1 gm/dL (3.4-4.8); Albumin/Globulin Ratio 1.9 (1.2-2.2); Alkaline Phosphatase 95 U/L (46-116); Anion Gap 7 (7-16); Aspartate Amino Transferase 52 U/L (0-34); BUN/Creatinine Ratio 9 Ratio (12-20); Bilirubin,Total 0.7 mg/dL (0.3-1.2); Blood Urea Nitrogen 9 mg/dL (9-23); Calcium 9.7 mg/dL (8.3-10.6); Calcium (Corrected) 9.7 mg/dL (8.5-10.1); Chloride 105 mMol/L (98-107); Globulin 2.2 gm/dL (2.3-3.5); Glucose 96 mg/dL (74-106); Osmolality,Calculated 279 (275-295); Potassium 4.8 mMol/L (3.4-5.1); Prealbumin 24.2 mg/dL (10.0-40.0); Sodium 141 mMol/L (136-145); Total Protein 6.3 gm/dL (5.7-8.2); eGFR > 60 See Note
[2024-03-31 10:49] LABS: Ferritin 40 ng/mL (10.5-307.3); Iron 239 mcg/dL (65-175); Percent Iron Saturation 68 % (20-55); Total Iron Binding Capacity 351 mcg/dL (250-425); Unsaturated Iron Binding 112 (225-295)
== END | disposition home or self-care (01) ==
PROVIDERS: PCP Nurse Practitioner Family; Referring Provider Nurse Practitioner Family; Visit Provider Radiology Diagnostic Radiology
DX: Z01.89 Encounter for other specified special examinations (principal); D50.9 Iron deficiency anemia, unspecified
CPT/HCPCS: 36415; 71046; 80053; 82728; 83540; 83550; 84134; 85025; 85610; 85730; 93005